=== PATIENT | female | born 1960 ===

== ENCOUNTER → 2025-04-10 12:32 | Outpatient (BNVA) | payer MEDICARE, MEDICAID, SELFPAY | PROVIDERS: Visit Provider Nurse Practitioner Gerontology | DX: R31.9 Hematuria, unspecified (principal); E11.9 Type 2 diabetes mellitus without complications; Z80.42 Family history of malignant neoplasm of prostate | CPT/HCPCS: 99203; 81002 ==

== ENCOUNTER 2025-04-10 13:30 | Outpatient (REF) | payer MEDICARE, MEDICAID, SELFPAY ==
[2025-04-10 14:47] LABS: Glucose Negative (Negative)
[2025-04-10 15:50] LABS: C & S Indicated? No; RBC 0-2 HPF (0-2); WBC 0-2 HPF (0-5)
== END 2025-04-10 13:31 | disposition home or self-care (01) ==
LOC: LBN 13:30
PROVIDERS: PCP Registered Nurse; Visit Provider Nurse Practitioner Gerontology
DX: R31.29 Other microscopic hematuria (principal)
CPT/HCPCS: 81003; 81015